=== PATIENT | male | born 1935 | race Caucasian/White ===

== ENCOUNTER 2018-08-14 09:41 | Inpatient (IN) | payer MEDICARE ==
[2018-08-14] MEDS: APIXABAN 2.5 MG TAB (ELIQUIS) PO ×2 (09:00→20:56)
[~2018-08-14 09:41] MED LIST: BUDESONIDE 0.5 MG/2 ML INHALATION SUSPENSION INH
[2018-08-14] MEDS: IPRATROPIUM 0.5MG/ALBUTEROL 2.5MG INH SOL UD 3ML (DUONEB)(J7620) NEB ×5 (10:24→22:02)
[2018-08-14 10:27] LABS: ABG BASE EXCESS -0.2 (-2.0-2.0); ABG O2 SATURATION 92.4 % (95.0-99.0); ABG PARTIAL PRESSURE CO2 37.9 mmHg (35.0-45.0); ABG PARTIAL PRESSURE O2 62.4 mmHg (75.0-100.0); ABG STANDARD HCO3 24.2 MEQ/L (22.0-26.0); ABG TOTAL CO2 25.2 MEQ/L (23.0-31.0)
[2018-08-14 10:30] LABS: BASO % 0.2 % (0.0-1.0); EOS % 0.3 % (0.0-3.0); HEMATOCRIT 39.1 % (42.0-52.0); HEMOGLOBIN 13.3 g/dl (13.5-17.5); IMMATURE GRANULOCYTE % 0.5 % (0-3.0); LYMPH # 0.8 10^3/uL (1.5-4.5); LYMPH % 6.5 % (24.0-44.0); MEAN CORPUSCULAR HEMOGLOBIN 32.6 pg (27.0-33.0); MEAN CORPUSCULAR VOLUME 95.8 fl (80.0-96.0); MONO # 0.3 10^3/uL (0.0-0.8); MONO % 2.7 % (0.0-5.0); NEUTROPHILS # 10.7 10^3/uL (1.8-7.7); NEUTROPHILS % 89.8 % (36.0-66.0); PLATELET COUNT, AUTOMATED 166 10^3/uL (150-450); RED BLOOD COUNT 4.08 10^6/uL (4.30-6.10); RED CELL DISTRIBUTION WIDTH 13.3 % (11.5-14.5); WHITE BLOOD COUNT 11.9 10^3/uL (4.0-10.0)
[2018-08-14 10:41] LABS: INR 0.94; PROTHROMBIN TIME 12.7 SECONDS (12.1-14.4)
[2018-08-14] MEDS: NS 1,000 ML IV (10:51)
[2018-08-14] MEDS: methylPREDNISolone INJ 125 MG/2 ML VIAL (J2930) IV ×2 (10:52→17:43)
[2018-08-14] MEDS: cefTRIAXone SOD 2 GM in D5W MINI-BAG PLUS 50 ML IV (10:59)
[2018-08-14] MEDS: ACETAMINOPHEN 325 MG TAB PO (11:12)
[2018-08-14 11:28] LABS: ALBUMIN 3.3 GM/DL (3.2-5.2); ALKALINE PHOSPHATASE 102 U/L (45-117); ALT/SGPT 20 U/L (12-78); ANION GAP 11 MEQ/L (8-16); AST/SGOT 13 U/L (7-37); BILIRUBIN,DIRECT 0.2 MG/DL (0.0-0.2); BILIRUBIN,TOTAL 0.4 MG/DL (0.2-1.0); BLOOD UREA NITROGEN 33 MG/DL (7-18); CALCIUM LEVEL 8.5 MG/DL (8.8-10.2); CARBON DIOXIDE LEVEL 24 MEQ/L (21-32); CHLORIDE LEVEL 110 MEQ/L (98-107); CPK CREATINE PHOSPHOKINASE 98 U/L (39-308); CREATININE FOR GFR 1.68 MG/DL (0.70-1.30); GLOMERULAR FILTRATION RATE 41.7 (>35); GLUCOSE, FASTING 233 MG/DL (70-100); INFLUENZA A AMPLIFICATION NEGATIVE (NEGATIVE); INFLUENZA B AMPLIFICATION NEGATIVE (NEGATIVE); MB/CK RELATIVE INDEX 2.96 (< OR =4); NT-PRO BNP 188 PG/ML (<450); SODIUM LEVEL 145 MEQ/L (136-145); TOTAL PROTEIN 6.3 GM/DL (6.4-8.2); TROPONIN I 0.02 NG/ML (< 0.10)
[2018-08-14] MEDS ORDERED: GLUCAGON FOR INJ 1 MG VIAL (J1610) SC (13:00)
[2018-08-14] MEDS ORDERED: ACETAMINOPHEN TAB 650MG DOSE (2X325MG) PO (13:00)
[2018-08-14] MEDS ORDERED: GLUCOSE 4 GM CHEW TABLET PO (13:00)
[2018-08-14] MEDS ORDERED: DEXTROSE 50% 50 ML SYRINGE IV (13:00)
[2018-08-14] MEDS ORDERED: ONDANSETRON 4MG/2ML VIAL (J2405) IV (13:15)
[2018-08-14 15:01] LABS: C REACTIVE PROTEIN QUANTITATIV 2.87 MG/DL (0.00-0.30); CPK CREATINE PHOSPHOKINASE 125 U/L (39-308); FREE T4 0.52 NG/DL (0.76-1.46); TROPONIN I 0.04 NG/ML (< 0.10)
[2018-08-14] MEDS: AZITHROMYCIN INJ 500 MG, VIAL MATE ADAPTER 1 EACH in D5W 250 ML IV (15:40)
[2018-08-14] MEDS: FUROSEMIDE 40 MG TAB PO (15:41)
[2018-08-14] MEDS: OMEPRAZOLE 20 MG CAP PO (15:42)
[2018-08-14] MEDS: ATENOLOL 25 MG TAB PO (15:44)
[2018-08-14 16:57] LABS: BEDSIDE GLUCOSE 483 MG/DL (83-110)
[2018-08-14] MEDS: LEVOTHYROXINE 25MCG TABLET (0.025MG) PO (17:12)
[2018-08-14] MEDS: HumaLOG INSULIN (NovoLOG) PER UNIT SC ×2 (17:44→20:55)
[2018-08-14 20:03] LABS: CPK CREATINE PHOSPHOKINASE 213 U/L (39-308); MB/CK RELATIVE INDEX 2.49 (< OR =4); TROPONIN I 0.02 NG/ML (< 0.10)
[2018-08-14 20:34] LABS: BEDSIDE GLUCOSE 410 MG/DL (83-110)
[2018-08-14] MEDS: LEVEMIR (INSULIN DETEMIR) 1 UNITS/0.01ML SC (20:54)
[2018-08-14] MEDS: TAMSULOSIN 0.4 MG CAP PO (20:55)
[2018-08-14] MEDS: SIMVASTATIN 20 MG TAB PO (20:55)
[2018-08-14] MEDS: MONTELUKAST 10 MG TAB PO (20:56)
[2018-08-14] MEDS: SENOKOT S TAB PO (20:56)
[2018-08-14] MEDS: MULTIVITAMINS/MINERALS THERAP 1 TAB PO (20:56)
[2018-08-14] MEDS: ASCORBIC ACID 500 MG TAB PO (20:56)
[2018-08-14] MEDS: SYMBICORT 160/4.5MCG INHALER 6GM INH (21:00)
[2018-08-15] MEDS: IPRATROPIUM 0.5MG/ALBUTEROL 2.5MG INH SOL UD 3ML (DUONEB)(J7620) NEB ×3 (01:30→14:13)
[2018-08-15] MEDS: NS 1,000 ML IV ×2 (02:53→13:10)
[2018-08-15] MEDS: methylPREDNISolone INJ 125 MG/2 ML VIAL (J2930) IV ×3 (02:54→18:15)
[2018-08-15 05:08] LABS: HEMATOCRIT 38.3 % (42.0-52.0); HEMOGLOBIN 12.6 g/dl (13.5-17.5); MEAN CORPUSCULAR HEMOGLOBIN 32.1 pg (27.0-33.0); MEAN CORPUSCULAR HGB CONC 32.9 g/dl (32.0-36.5); MEAN CORPUSCULAR VOLUME 97.5 fl (80.0-96.0); PLATELET COUNT, AUTOMATED 158 10^3/uL (150-450); RED BLOOD COUNT 3.93 10^6/uL (4.30-6.10); RED CELL DISTRIBUTION WIDTH 13.5 % (11.5-14.5); WHITE BLOOD COUNT 18.4 10^3/uL (4.0-10.0)
[2018-08-15] MEDS: LEVOTHYROXINE 25MCG TABLET (0.025MG) PO (05:39)
[2018-08-15 05:40] LABS: ANION GAP 9 MEQ/L (8-16); BLOOD UREA NITROGEN 35 MG/DL (7-18); CALCIUM LEVEL 8.3 MG/DL (8.8-10.2); CARBON DIOXIDE LEVEL 25 MEQ/L (21-32); CHLORIDE LEVEL 108 MEQ/L (98-107); CREATININE FOR GFR 1.58 MG/DL (0.70-1.30); GLOMERULAR FILTRATION RATE 44.8 (>35); GLUCOSE, FASTING 284 MG/DL (70-100); MAGNESIUM LEVEL 2.1 MG/DL (1.8-2.4); POTASSIUM SERUM 4.7 MEQ/L (3.5-5.1); SODIUM LEVEL 142 MEQ/L (136-145)
[2018-08-15] MEDS: SYMBICORT 160/4.5MCG INHALER 6GM INH ×2 (07:27→21:44)
[2018-08-15] MEDS: HumaLOG INSULIN (NovoLOG) PER UNIT SC ×4 (07:57→20:40)
[2018-08-15] MEDS: APIXABAN 2.5 MG TAB (ELIQUIS) PO ×2 (07:59→20:40)
[2018-08-15] MEDS: FUROSEMIDE 40 MG TAB PO (07:59)
[2018-08-15] MEDS: ATENOLOL 25 MG TAB PO (07:59)
[2018-08-15] MEDS: OMEPRAZOLE 20 MG CAP PO (07:59)
[2018-08-15] MEDS: SENOKOT S TAB PO ×2 (07:59→20:39)
[2018-08-15] MEDS: cefTRIAXone SOD 1 GM in D5W MINI-BAG PLUS 50 ML IV (10:42)
[2018-08-15 11:30] LABS: BEDSIDE GLUCOSE 259 MG/DL (83-110)
[2018-08-15] MEDS: cloNIDine 0.2 MG TAB PO (13:09)
[2018-08-15] MEDS: AZITHROMYCIN INJ 500 MG, VIAL MATE ADAPTER 1 EACH in D5W 250 ML IV (13:10)
[2018-08-15] MEDS ORDERED: BISACODYL 5 MG TAB PO (16:15)
[2018-08-15 16:49] LABS: BEDSIDE GLUCOSE 383 MG/DL (83-110)
[2018-08-15] MEDS: amLODIPine 10 MG TAB PO (17:12)
[2018-08-15 17:20] LABS: LACTIC ACID SEPSIS PROTOCOL 2.1 MMOL/L (0.4-2.0)
[2018-08-15] MEDS: ALBUTEROL SULFATE 2.5 MG/0.5 ML INH NEB SOLN NEB (20:00)
[2018-08-15 20:05] LABS: BEDSIDE GLUCOSE 318 MG/DL (83-110)
[2018-08-15] MEDS: SIMVASTATIN 20 MG TAB PO (20:39)
[2018-08-15] MEDS: MONTELUKAST 10 MG TAB PO (20:40)
[2018-08-15] MEDS: ASCORBIC ACID 500 MG TAB PO (20:40)
[2018-08-15] MEDS: TAMSULOSIN 0.4 MG CAP PO (20:40)
[2018-08-15] MEDS: MULTIVITAMINS/MINERALS THERAP 1 TAB PO (20:40)
[2018-08-15] MEDS: LEVEMIR (INSULIN DETEMIR) 1 UNITS/0.01ML SC (20:41)
[2018-08-16] MEDS: ALBUTEROL SULFATE 2.5 MG/0.5 ML INH NEB SOLN NEB ×4 (00:50→18:20)
[2018-08-16] MEDS: methylPREDNISolone INJ 125 MG/2 ML VIAL (J2930) IV (02:29)
[2018-08-16] MEDS: LEVOTHYROXINE 25MCG TABLET (0.025MG) PO (05:44)
[2018-08-16 05:52] LABS: HEMATOCRIT 38.4 % (42.0-52.0); HEMOGLOBIN 12.9 g/dl (13.5-17.5); MEAN CORPUSCULAR HEMOGLOBIN 32.5 pg (27.0-33.0); MEAN CORPUSCULAR HGB CONC 33.6 g/dl (32.0-36.5); MEAN CORPUSCULAR VOLUME 96.7 fl (80.0-96.0); PLATELET COUNT, AUTOMATED 164 10^3/uL (150-450); RED BLOOD COUNT 3.97 10^6/uL (4.30-6.10); RED CELL DISTRIBUTION WIDTH 13.3 % (11.5-14.5); WHITE BLOOD COUNT 18.9 10^3/uL (4.0-10.0)
[2018-08-16 06:00] LABS: ANION GAP 10 MEQ/L (8-16); BLOOD UREA NITROGEN 38 MG/DL (7-18); CALCIUM LEVEL 8.3 MG/DL (8.8-10.2); CARBON DIOXIDE LEVEL 24 MEQ/L (21-32); CHLORIDE LEVEL 105 MEQ/L (98-107); CREATININE FOR GFR 1.52 MG/DL (0.70-1.30); GLOMERULAR FILTRATION RATE 46.9 (>35); GLUCOSE, FASTING 319 MG/DL (70-100); MAGNESIUM LEVEL 2.2 MG/DL (1.8-2.4); POTASSIUM SERUM 4.7 MEQ/L (3.5-5.1); SODIUM LEVEL 139 MEQ/L (136-145)
[2018-08-16] MEDS: IPRATROPIUM 0.5MG/ALBUTEROL 2.5MG INH SOL UD 3ML (DUONEB)(J7620) NEB ×3 (06:14→20:19)
[2018-08-16] MEDS: SYMBICORT 160/4.5MCG INHALER 6GM INH ×2 (08:25→20:21)
[2018-08-16] MEDS: HumaLOG INSULIN (NovoLOG) PER UNIT SC ×4 (08:38→21:15)
[2018-08-16] MEDS: APIXABAN 2.5 MG TAB (ELIQUIS) PO ×2 (08:39→21:14)
[2018-08-16] MEDS: FUROSEMIDE 40 MG TAB PO (08:39)
[2018-08-16] MEDS: SENOKOT S TAB PO ×2 (08:39→21:14)
[2018-08-16] MEDS: LEVEMIR (INSULIN DETEMIR) 1 UNITS/0.01ML SC ×2 (08:39→21:15)
[2018-08-16] MEDS: amLODIPine 10 MG TAB PO (08:39)
[2018-08-16] MEDS: ATENOLOL 25 MG TAB PO (08:40)
[2018-08-16] MEDS: OMEPRAZOLE 20 MG CAP PO (08:40)
[2018-08-16] MEDS: cefTRIAXone SOD 1 GM in D5W MINI-BAG PLUS 50 ML IV (11:08)
[2018-08-16] MEDS: methylPREDNISolone INJ 40 MG/1 ML VIAL (J2920) IV ×2 (11:08→22:22)
[2018-08-16 11:24] LABS: BEDSIDE GLUCOSE 414 MG/DL (83-110)
[2018-08-16] MEDS: AZITHROMYCIN INJ 500 MG, VIAL MATE ADAPTER 1 EACH in D5W 250 ML IV (14:25)
[2018-08-16 17:00] LABS: BEDSIDE GLUCOSE 346 MG/DL (83-110)
[2018-08-16 19:59] LABS: BEDSIDE GLUCOSE 337 MG/DL (83-110)
[2018-08-16] MEDS: MONTELUKAST 10 MG TAB PO (21:14)
[2018-08-16] MEDS: ASCORBIC ACID 500 MG TAB PO (21:14)
[2018-08-16] MEDS: TAMSULOSIN 0.4 MG CAP PO (21:14)
[2018-08-16] MEDS: MULTIVITAMINS/MINERALS THERAP 1 TAB PO (21:14)
[2018-08-16] MEDS: SIMVASTATIN 20 MG TAB PO (21:15)
[2018-08-17] MEDS: ALBUTEROL SULFATE 2.5 MG/0.5 ML INH NEB SOLN NEB ×4 (01:50→20:00)
[2018-08-17] MEDS: **hydrALAZINE** 10 MG TAB PO (06:03)
[2018-08-17] MEDS: LEVOTHYROXINE 25MCG TABLET (0.025MG) PO (06:03)
[2018-08-17 06:55] LABS: HEMOGLOBIN 12.7 g/dl (13.5-17.5); MEAN CORPUSCULAR HEMOGLOBIN 32.5 pg (27.0-33.0); MEAN CORPUSCULAR HGB CONC 34.3 g/dl (32.0-36.5); MEAN CORPUSCULAR VOLUME 94.6 fl (80.0-96.0); PLATELET COUNT, AUTOMATED 170 10^3/uL (150-450); RED BLOOD COUNT 3.91 10^6/uL (4.30-6.10); RED CELL DISTRIBUTION WIDTH 13.5 % (11.5-14.5); WHITE BLOOD COUNT 16.5 10^3/uL (4.0-10.0)
[2018-08-17 07:21] LABS: ANION GAP 10 MEQ/L (8-16); BLOOD UREA NITROGEN 39 MG/DL (7-18); C REACTIVE PROTEIN QUANTITATIV 4.37 MG/DL (0.00-0.30); CALCIUM LEVEL 8.7 MG/DL (8.8-10.2); CARBON DIOXIDE LEVEL 24 MEQ/L (21-32); CHLORIDE LEVEL 106 MEQ/L (98-107); CREATININE FOR GFR 1.49 MG/DL (0.70-1.30); GLOMERULAR FILTRATION RATE 47.9 (>35); GLUCOSE, FASTING 239 MG/DL (70-100); MAGNESIUM LEVEL 2.3 MG/DL (1.8-2.4); POTASSIUM SERUM 3.9 MEQ/L (3.5-5.1); SODIUM LEVEL 140 MEQ/L (136-145)
[2018-08-17] MEDS: APIXABAN 2.5 MG TAB (ELIQUIS) PO ×2 (08:30→21:17)
[2018-08-17] MEDS: OMEPRAZOLE 20 MG CAP PO (08:30)
[2018-08-17] MEDS: FUROSEMIDE 40 MG TAB PO (08:31)
[2018-08-17] MEDS: SENOKOT S TAB PO ×2 (08:31→21:16)
[2018-08-17] MEDS: ATENOLOL 25 MG TAB PO (08:31)
[2018-08-17] MEDS: HumaLOG INSULIN (NovoLOG) PER UNIT SC ×4 (08:32→21:17)
[2018-08-17] MEDS: LEVEMIR (INSULIN DETEMIR) 1 UNITS/0.01ML SC ×2 (08:32→21:18)
[2018-08-17] MEDS: amLODIPine 10 MG TAB PO (08:33)
[2018-08-17] MEDS: methylPREDNISolone INJ 40 MG/1 ML VIAL (J2920) IV ×2 (10:34→18:00)
[2018-08-17] MEDS: cefTRIAXone SOD 1 GM in D5W MINI-BAG PLUS 50 ML IV (10:34)
[2018-08-17] MEDS: FUROSEMIDE 20 MG/2 ML VIAL (J1940) IV (10:34)
[2018-08-17] MEDS: FORMOTEROL FUMARATE 20 MCG/2 ML INHALATION SOLUTION (PERFOROMIST) INH ×2 (11:16→20:42)
[2018-08-17] MEDS: BUDESONIDE 0.5 MG/2 ML INHALATION SUSPENSION INH ×2 (11:18→20:42)
[2018-08-17] MEDS: TIOTROPIUM INHALER/CAPSULE (SPIRIVA) INH (11:18)
[2018-08-17 11:29] LABS: BEDSIDE GLUCOSE 252 MG/DL (83-110)
[2018-08-17] MEDS: AZITHROMYCIN INJ 500 MG, VIAL MATE ADAPTER 1 EACH in D5W 250 ML IV (15:15)
[2018-08-17 16:43] LABS: BEDSIDE GLUCOSE 354 MG/DL (83-110)
[2018-08-17 20:34] LABS: BEDSIDE GLUCOSE 273 MG/DL (83-110)
[2018-08-17] MEDS: SIMVASTATIN 20 MG TAB PO (21:16)
[2018-08-17] MEDS: MULTIVITAMINS/MINERALS THERAP 1 TAB PO (21:16)
[2018-08-17] MEDS: ASCORBIC ACID 500 MG TAB PO (21:17)
[2018-08-17] MEDS: TAMSULOSIN 0.4 MG CAP PO (21:17)
[2018-08-17] MEDS: MONTELUKAST 10 MG TAB PO (21:17)
[2018-08-18] MEDS: methylPREDNISolone INJ 40 MG/1 ML VIAL (J2920) IV ×2 (01:05→09:07)
[2018-08-18] MEDS: ALBUTEROL SULFATE 2.5 MG/0.5 ML INH NEB SOLN NEB (03:02)
[2018-08-18] MEDS: LEVOTHYROXINE 25MCG TABLET (0.025MG) PO (05:37)
[2018-08-18 06:46] LABS: HEMATOCRIT 38.3 % (42.0-52.0); MEAN CORPUSCULAR HEMOGLOBIN 31.9 pg (27.0-33.0); MEAN CORPUSCULAR HGB CONC 33.9 g/dl (32.0-36.5); MEAN CORPUSCULAR VOLUME 94.1 fl (80.0-96.0); PLATELET COUNT, AUTOMATED 176 10^3/uL (150-450); RED BLOOD COUNT 4.07 10^6/uL (4.30-6.10); RED CELL DISTRIBUTION WIDTH 13.4 % (11.5-14.5); WHITE BLOOD COUNT 12.3 10^3/uL (4.0-10.0)
[2018-08-18 07:05] LABS: ANION GAP 9 MEQ/L (8-16); BLOOD UREA NITROGEN 42 MG/DL (7-18); C REACTIVE PROTEIN QUANTITATIV 1.95 MG/DL (0.00-0.30); CALCIUM LEVEL 8.8 MG/DL (8.8-10.2); CARBON DIOXIDE LEVEL 27 MEQ/L (21-32); CHLORIDE LEVEL 106 MEQ/L (98-107); CREATININE FOR GFR 1.58 MG/DL (0.70-1.30); GLOMERULAR FILTRATION RATE 44.8 (>35); GLUCOSE, FASTING 232 MG/DL (70-100); MAGNESIUM LEVEL 2.4 MG/DL (1.8-2.4); POTASSIUM SERUM 4.3 MEQ/L (3.5-5.1); SODIUM LEVEL 142 MEQ/L (136-145)
[2018-08-18] MEDS: BUDESONIDE 0.5 MG/2 ML INHALATION SUSPENSION INH ×2 (08:01→21:05)
[2018-08-18] MEDS: FORMOTEROL FUMARATE 20 MCG/2 ML INHALATION SOLUTION (PERFOROMIST) INH ×2 (08:01→21:06)
[2018-08-18] MEDS: TIOTROPIUM INHALER/CAPSULE (SPIRIVA) INH (08:02)
[2018-08-18] MEDS ORDERED: FUROSEMIDE 80 MG TAB PO (09:00)
[2018-08-18] MEDS ORDERED: FUROSEMIDE 40 MG/4 ML VIAL (J1940) IV (09:00)
[2018-08-18] MEDS: LEVEMIR (INSULIN DETEMIR) 1 UNITS/0.01ML SC ×2 (09:05→21:27)
[2018-08-18] MEDS: HumaLOG INSULIN (NovoLOG) PER UNIT SC ×4 (09:06→21:26)
[2018-08-18] MEDS: FUROSEMIDE 20 MG TAB PO (09:06)
[2018-08-18] MEDS: APIXABAN 2.5 MG TAB (ELIQUIS) PO ×2 (09:06→21:27)
[2018-08-18] MEDS: OMEPRAZOLE 20 MG CAP PO (09:07)
[2018-08-18] MEDS: SENOKOT S TAB PO ×2 (09:07→21:27)
[2018-08-18] MEDS: amLODIPine 10 MG TAB PO (09:08)
[2018-08-18] MEDS: ATENOLOL 25 MG TAB PO (09:08)
[2018-08-18] MEDS: IPRATROPIUM 0.5MG/ALBUTEROL 2.5MG INH SOL UD 3ML (DUONEB)(J7620) NEB ×4 (11:36→23:40)
[2018-08-18] MEDS: guaiFENesin ER 600 MG TAB PO ×2 (11:48→21:27)
[2018-08-18] MEDS: AZITHROMYCIN 250 MG TAB PO (11:48)
[2018-08-18] MEDS: cefTRIAXone SOD 1 GM in D5W MINI-BAG PLUS 50 ML IV (11:49)
[2018-08-18 12:04] LABS: BEDSIDE GLUCOSE 192 MG/DL (83-110)
[2018-08-18 16:39] LABS: BEDSIDE GLUCOSE 212 MG/DL (83-110)
[2018-08-18] MEDS: methylPREDNISolone INJ 125 MG/2 ML VIAL (J2930) IV ×2 (16:45→21:27)
[2018-08-18 20:43] LABS: BEDSIDE GLUCOSE 299 MG/DL (83-110)
[2018-08-18] MEDS: SIMVASTATIN 20 MG TAB PO (21:27)
[2018-08-18] MEDS: TAMSULOSIN 0.4 MG CAP PO (21:27)
[2018-08-18] MEDS: ASCORBIC ACID 500 MG TAB PO (21:28)
[2018-08-18] MEDS: MONTELUKAST 10 MG TAB PO (21:28)
[2018-08-18] MEDS: MULTIVITAMINS/MINERALS THERAP 1 TAB PO (21:28)
[2018-08-19] MEDS: IPRATROPIUM 0.5MG/ALBUTEROL 2.5MG INH SOL UD 3ML (DUONEB)(J7620) NEB ×5 (03:00→20:00)
[2018-08-19] MEDS: methylPREDNISolone INJ 125 MG/2 ML VIAL (J2930) IV ×4 (03:12→21:08)
[2018-08-19] MEDS: LEVOTHYROXINE 25MCG TABLET (0.025MG) PO (05:34)
[2018-08-19] MEDS: amLODIPine 10 MG TAB PO (05:34)
[2018-08-19 06:45] LABS: HEMATOCRIT 40.1 % (42.0-52.0); HEMOGLOBIN 13.7 g/dl (13.5-17.5); MEAN CORPUSCULAR HEMOGLOBIN 31.9 pg (27.0-33.0); MEAN CORPUSCULAR HGB CONC 34.2 g/dl (32.0-36.5); MEAN CORPUSCULAR VOLUME 93.5 fl (80.0-96.0); PLATELET COUNT, AUTOMATED 174 10^3/uL (150-450); RED BLOOD COUNT 4.29 10^6/uL (4.30-6.10); WHITE BLOOD COUNT 12.4 10^3/uL (4.0-10.0)
[2018-08-19 07:09] LABS: ANION GAP 8 MEQ/L (8-16); BLOOD UREA NITROGEN 47 MG/DL (7-18); C REACTIVE PROTEIN QUANTITATIV 1.15 MG/DL (0.00-0.30); CALCIUM LEVEL 8.9 MG/DL (8.8-10.2); CARBON DIOXIDE LEVEL 27 MEQ/L (21-32); CHLORIDE LEVEL 105 MEQ/L (98-107); CREATININE FOR GFR 1.64 MG/DL (0.70-1.30); GLOMERULAR FILTRATION RATE 42.9 (>35); GLUCOSE, FASTING 256 MG/DL (70-100); MAGNESIUM LEVEL 2.5 MG/DL (1.8-2.4); POTASSIUM SERUM 4.3 MEQ/L (3.5-5.1); SODIUM LEVEL 140 MEQ/L (136-145)
[2018-08-19] MEDS: BUDESONIDE 0.5 MG/2 ML INHALATION SUSPENSION INH ×2 (07:47→23:47)
[2018-08-19] MEDS: FORMOTEROL FUMARATE 20 MCG/2 ML INHALATION SOLUTION (PERFOROMIST) INH ×2 (07:47→23:47)
[2018-08-19] MEDS: TIOTROPIUM INHALER/CAPSULE (SPIRIVA) INH (07:48)
[2018-08-19] MEDS: LEVEMIR (INSULIN DETEMIR) 1 UNITS/0.01ML SC ×2 (07:58→21:07)
[2018-08-19] MEDS: HumaLOG INSULIN (NovoLOG) PER UNIT SC ×4 (07:58→21:08)
[2018-08-19] MEDS: FUROSEMIDE 20 MG TAB PO (07:59)
[2018-08-19] MEDS: AZITHROMYCIN 250 MG TAB PO (07:59)
[2018-08-19] MEDS: SENOKOT S TAB PO ×2 (07:59→21:07)
[2018-08-19] MEDS: OMEPRAZOLE 20 MG CAP PO (08:01)
[2018-08-19] MEDS: guaiFENesin ER 600 MG TAB PO ×2 (08:01→21:07)
[2018-08-19] MEDS: APIXABAN 2.5 MG TAB (ELIQUIS) PO ×2 (08:01→21:06)
[2018-08-19] MEDS: ATENOLOL 25 MG TAB PO (08:12)
[2018-08-19] MEDS: cefTRIAXone SOD 1 GM in D5W MINI-BAG PLUS 50 ML IV (10:42)
[2018-08-19 11:39] LABS: BEDSIDE GLUCOSE 193 MG/DL (83-110)
[2018-08-19 16:43] LABS: BEDSIDE GLUCOSE 177 MG/DL (83-110)
[2018-08-19 20:17] LABS: BEDSIDE GLUCOSE 322 MG/DL (83-110)
[2018-08-19] MEDS: ASCORBIC ACID 500 MG TAB PO (21:06)
[2018-08-19] MEDS: MONTELUKAST 10 MG TAB PO (21:06)
[2018-08-19] MEDS: SIMVASTATIN 20 MG TAB PO (21:06)
[2018-08-19] MEDS: MULTIVITAMINS/MINERALS THERAP 1 TAB PO (21:07)
[2018-08-19] MEDS: TAMSULOSIN 0.4 MG CAP PO (21:07)
[2018-08-20] MEDS: methylPREDNISolone INJ 125 MG/2 ML VIAL (J2930) IV ×4 (03:06→21:36)
[2018-08-20] MEDS: IPRATROPIUM 0.5MG/ALBUTEROL 2.5MG INH SOL UD 3ML (DUONEB)(J7620) NEB ×6 (04:00→21:05)
[2018-08-20] MEDS: LEVOTHYROXINE 25MCG TABLET (0.025MG) PO (05:33)
[2018-08-20 05:52] LABS: HEMATOCRIT 41.5 % (42.0-52.0); HEMOGLOBIN 14.1 g/dl (13.5-17.5); MEAN CORPUSCULAR HEMOGLOBIN 31.9 pg (27.0-33.0); MEAN CORPUSCULAR VOLUME 93.9 fl (80.0-96.0); PLATELET COUNT, AUTOMATED 183 10^3/uL (150-450); RED BLOOD COUNT 4.42 10^6/uL (4.30-6.10); WHITE BLOOD COUNT 16.7 10^3/uL (4.0-10.0)
[2018-08-20 06:11] LABS: ANION GAP 10 MEQ/L (8-16); BLOOD UREA NITROGEN 52 MG/DL (7-18); C REACTIVE PROTEIN QUANTITATIV 0.81 MG/DL (0.00-0.30); CALCIUM LEVEL 8.7 MG/DL (8.8-10.2); CARBON DIOXIDE LEVEL 27 MEQ/L (21-32); CHLORIDE LEVEL 105 MEQ/L (98-107); CREATININE FOR GFR 1.75 MG/DL (0.70-1.30); GLOMERULAR FILTRATION RATE 39.8 (>35); GLUCOSE, FASTING 206 MG/DL (70-100); MAGNESIUM LEVEL 2.2 MG/DL (1.8-2.4); POTASSIUM SERUM 4.2 MEQ/L (3.5-5.1); SODIUM LEVEL 142 MEQ/L (136-145)
[2018-08-20] MEDS: BUDESONIDE 0.5 MG/2 ML INHALATION SUSPENSION INH ×2 (07:25→21:05)
[2018-08-20] MEDS: FORMOTEROL FUMARATE 20 MCG/2 ML INHALATION SOLUTION (PERFOROMIST) INH ×2 (07:25→21:05)
[2018-08-20] MEDS: TIOTROPIUM INHALER/CAPSULE (SPIRIVA) INH (07:25)
[2018-08-20] MEDS: ATENOLOL 25 MG TAB PO (07:46)
[2018-08-20] MEDS: SENOKOT S TAB PO ×2 (07:46→21:38)
[2018-08-20] MEDS: OMEPRAZOLE 20 MG CAP PO (07:46)
[2018-08-20] MEDS: amLODIPine 10 MG TAB PO (07:47)
[2018-08-20] MEDS: HumaLOG INSULIN (NovoLOG) PER UNIT SC ×4 (07:47→21:37)
[2018-08-20] MEDS: APIXABAN 2.5 MG TAB (ELIQUIS) PO ×2 (07:47→21:38)
[2018-08-20] MEDS: AZITHROMYCIN 250 MG TAB PO (07:47)
[2018-08-20] MEDS: guaiFENesin ER 600 MG TAB PO ×2 (07:47→21:37)
[2018-08-20] MEDS: LEVEMIR (INSULIN DETEMIR) 1 UNITS/0.01ML SC ×3 (07:48→21:37)
[2018-08-20] MEDS: cefTRIAXone SOD 1 GM in D5W MINI-BAG PLUS 50 ML IV (10:08)
[2018-08-20] MEDS: FLUTICASONE PROP 0.05% NASAL SPRAY 16 GM (FLONASE) NARES ×2 (11:15→21:39)
[2018-08-20] MEDS: SODIUM CHLORIDE NASAL 0.65% SPRAY BTL (OCEAN) ×3 (11:15→21:39)
[2018-08-20 11:38] LABS: BEDSIDE GLUCOSE 95 MG/DL (83-110)
[2018-08-20 16:43] LABS: BEDSIDE GLUCOSE 195 MG/DL (83-110)
[2018-08-20 19:47] LABS: BEDSIDE GLUCOSE 257 MG/DL (83-110)
[2018-08-20] MEDS ORDERED: LEVEMIR (INSULIN DETEMIR) 1 UNITS/0.01ML SC (21:00)
[2018-08-20] MEDS: MULTIVITAMINS/MINERALS THERAP 1 TAB PO (21:38)
[2018-08-20] MEDS: TAMSULOSIN 0.4 MG CAP PO (21:38)
[2018-08-20] MEDS: MONTELUKAST 10 MG TAB PO (21:38)
[2018-08-20] MEDS: ASCORBIC ACID 500 MG TAB PO (21:38)
[2018-08-20] MEDS: SIMVASTATIN 20 MG TAB PO (21:38)
[2018-08-21 00:08] LABS: BODY FLUID CULTURE Not Indicated (.); LEGIONELLA ANTIGEN URINE Negative (Negative); ORGANISM ID Not indicated. (.); SPECIMEN SOURCE Urine (.); URINE STREP PNEUMONIAE ANTIGEN Negative (Negative)
[2018-08-21] MEDS: IPRATROPIUM 0.5MG/ALBUTEROL 2.5MG INH SOL UD 3ML (DUONEB)(J7620) NEB ×7 (00:53→23:53)
[2018-08-21] MEDS: methylPREDNISolone INJ 125 MG/2 ML VIAL (J2930) IV ×4 (04:20→21:17)
[2018-08-21] MEDS: LEVOTHYROXINE 25MCG TABLET (0.025MG) PO (05:33)
[2018-08-21 06:30] LABS: HEMATOCRIT 40.9 % (42.0-52.0); HEMOGLOBIN 13.9 g/dl (13.5-17.5); MEAN CORPUSCULAR HEMOGLOBIN 31.8 pg (27.0-33.0); MEAN CORPUSCULAR VOLUME 93.6 fl (80.0-96.0); PLATELET COUNT, AUTOMATED 191 10^3/uL (150-450); RED BLOOD COUNT 4.37 10^6/uL (4.30-6.10); RED CELL DISTRIBUTION WIDTH 12.9 % (11.5-14.5); WHITE BLOOD COUNT 16.3 10^3/uL (4.0-10.0)
[2018-08-21 06:31] LABS: SODIUM,RANDOM URINE 23 MEQ/L
[2018-08-21 06:36] LABS: APPEARANCE, URINE CLEAR (CLEAR); BACTERIA, URINE AUTO NEGATIVE (NEGATIVE); BILIRUBIN, URINE AUTO NEGATIVE (NEGATIVE); BLOOD, URINE BLOOD NEGATIVE (NEGATIVE); COLOR, URINE YELLOW (YELLOW); GLUCOSE, URINE (UA) AUTO 3+ mg/dL (NEGATIVE); KETONE, URINE AUTO NEGATIVE (NEGATIVE); LEUKOCYTE ESTERASE, URINE AUTO NEGATIVE (NEGATIVE); MUCUS, URINE SMALL (NEGATIVE); NITRITE, URINE AUTO NEGATIVE (NEGATIVE); PROTEIN, URINE AUTO 2+ mg/dL (NEGATIVE); RBC, URINE AUTO 2 /HPF (0-3); SPECIFIC GRAVITY URINE AUTO 1.018 (1.002-1.035); SQUAMOUS EPITHELIAL CELL UR AU 0 /HPF (0-6); UROBILINOGEN, URINE AUTO 0.2 mg/dL (0.0-2.0); WBC, URINE AUTO 1 /HPF (0-3)
[2018-08-21 06:44] LABS: ANION GAP 9 MEQ/L (8-16); BLOOD UREA NITROGEN 51 MG/DL (7-18); CALCIUM LEVEL 8.7 MG/DL (8.8-10.2); CARBON DIOXIDE LEVEL 26 MEQ/L (21-32); CHLORIDE LEVEL 106 MEQ/L (98-107); CREATININE FOR GFR 1.73 MG/DL (0.70-1.30); GLOMERULAR FILTRATION RATE 40.4 (>35); GLUCOSE, FASTING 228 MG/DL (70-100); MAGNESIUM LEVEL 2.5 MG/DL (1.8-2.4); POTASSIUM SERUM 4.2 MEQ/L (3.5-5.1); SODIUM LEVEL 141 MEQ/L (136-145)
[2018-08-21] MEDS: FORMOTEROL FUMARATE 20 MCG/2 ML INHALATION SOLUTION (PERFOROMIST) INH ×2 (08:24→20:42)
[2018-08-21] MEDS: TIOTROPIUM INHALER/CAPSULE (SPIRIVA) INH (08:24)
[2018-08-21] MEDS: BUDESONIDE 0.5 MG/2 ML INHALATION SUSPENSION INH ×2 (08:24→20:41)
[2018-08-21] MEDS: SENOKOT S TAB PO ×2 (08:55→21:15)
[2018-08-21] MEDS: HumaLOG INSULIN (NovoLOG) PER UNIT SC ×4 (08:55→21:16)
[2018-08-21] MEDS: guaiFENesin ER 600 MG TAB PO ×2 (08:55→21:15)
[2018-08-21] MEDS: LEVEMIR (INSULIN DETEMIR) 1 UNITS/0.01ML SC ×2 (08:55→21:16)
[2018-08-21] MEDS: ATENOLOL 25 MG TAB PO (08:56)
[2018-08-21] MEDS: amLODIPine 10 MG TAB PO (08:56)
[2018-08-21] MEDS: APIXABAN 2.5 MG TAB (ELIQUIS) PO ×2 (08:56→21:15)
[2018-08-21] MEDS: OMEPRAZOLE 20 MG CAP PO (08:56)
[2018-08-21] MEDS: SODIUM CHLORIDE NASAL 0.65% SPRAY BTL (OCEAN) ×3 (08:56→21:17)
[2018-08-21] MEDS: FLUTICASONE PROP 0.05% NASAL SPRAY 16 GM (FLONASE) NARES ×2 (08:56→21:17)
[2018-08-21 11:39] LABS: BEDSIDE GLUCOSE 240 MG/DL (83-110)
[2018-08-21] MEDS: CHLORTHALIDONE 12.5MG PER 1/2 TABLET PO (16:28)
[2018-08-21 17:00] LABS: BEDSIDE GLUCOSE 175 MG/DL (83-110)
[2018-08-21 20:50] LABS: BEDSIDE GLUCOSE 312 MG/DL (83-110)
[2018-08-21] MEDS: MULTIVITAMINS/MINERALS THERAP 1 TAB PO (21:15)
[2018-08-21] MEDS: SIMVASTATIN 20 MG TAB PO (21:15)
[2018-08-21] MEDS: ASCORBIC ACID 500 MG TAB PO (21:15)
[2018-08-21] MEDS: MONTELUKAST 10 MG TAB PO (21:15)
[2018-08-21] MEDS: TAMSULOSIN 0.4 MG CAP PO (21:19)
[2018-08-22] MEDS: methylPREDNISolone INJ 125 MG/2 ML VIAL (J2930) IV ×3 (03:08→17:26)
[2018-08-22] MEDS: IPRATROPIUM 0.5MG/ALBUTEROL 2.5MG INH SOL UD 3ML (DUONEB)(J7620) NEB ×4 (04:00→17:51)
[2018-08-22] MEDS: LEVOTHYROXINE 25MCG TABLET (0.025MG) PO (06:06)
[2018-08-22 07:14] LABS: HEMATOCRIT 40.2 % (42.0-52.0); HEMOGLOBIN 13.7 g/dl (13.5-17.5); MEAN CORPUSCULAR HEMOGLOBIN 31.9 pg (27.0-33.0); MEAN CORPUSCULAR HGB CONC 34.1 g/dl (32.0-36.5); MEAN CORPUSCULAR VOLUME 93.7 fl (80.0-96.0); PLATELET COUNT, AUTOMATED 183 10^3/uL (150-450); RED BLOOD COUNT 4.29 10^6/uL (4.30-6.10); RED CELL DISTRIBUTION WIDTH 12.9 % (11.5-14.5); WHITE BLOOD COUNT 14.8 10^3/uL (4.0-10.0)
[2018-08-22 07:47] LABS: ANION GAP 10 MEQ/L (8-16); BLOOD UREA NITROGEN 53 MG/DL (7-18); CALCIUM LEVEL 8.2 MG/DL (8.8-10.2); CARBON DIOXIDE LEVEL 24 MEQ/L (21-32); CHLORIDE LEVEL 106 MEQ/L (98-107); GLOMERULAR FILTRATION RATE 41.2 (>35); GLUCOSE, FASTING 284 MG/DL (70-100); POTASSIUM SERUM 4.1 MEQ/L (3.5-5.1); SODIUM LEVEL 140 MEQ/L (136-145)
[2018-08-22 07:50] LABS: MAGNESIUM LEVEL 2.5 MG/DL (1.8-2.4)
[2018-08-22] MEDS: FORMOTEROL FUMARATE 20 MCG/2 ML INHALATION SOLUTION (PERFOROMIST) INH (08:08)
[2018-08-22] MEDS: TIOTROPIUM INHALER/CAPSULE (SPIRIVA) INH (08:08)
[2018-08-22] MEDS: BUDESONIDE 0.5 MG/2 ML INHALATION SUSPENSION INH (08:08)
[2018-08-22] MEDS: SENOKOT S TAB PO (09:08)
[2018-08-22] MEDS: guaiFENesin ER 600 MG TAB PO (09:08)
[2018-08-22] MEDS: CHLORTHALIDONE 12.5MG PER 1/2 TABLET PO (09:08)
[2018-08-22] MEDS: SODIUM CHLORIDE NASAL 0.65% SPRAY BTL (OCEAN) ×2 (09:09→17:25)
[2018-08-22] MEDS: amLODIPine 10 MG TAB PO (09:09)
[2018-08-22] MEDS: APIXABAN 2.5 MG TAB (ELIQUIS) PO (09:09)
[2018-08-22] MEDS: FLUTICASONE PROP 0.05% NASAL SPRAY 16 GM (FLONASE) NARES (09:09)
[2018-08-22] MEDS: OMEPRAZOLE 20 MG CAP PO (09:09)
[2018-08-22] MEDS: LEVEMIR (INSULIN DETEMIR) 1 UNITS/0.01ML SC (09:10)
[2018-08-22] MEDS: HumaLOG INSULIN (NovoLOG) PER UNIT SC ×3 (09:10→17:26)
[2018-08-22 11:55] LABS: BEDSIDE GLUCOSE 288 MG/DL (83-110)
[2018-08-22 16:43] LABS: BEDSIDE GLUCOSE 260 MG/DL (83-110)
== END 2018-08-22 17:55 | disposition home or self-care (01) | DRG 193 ==
LOC: M MSPAV 08-16 14:51 → M ED 09:41 → M ED INP 13:01 → M PCU 16:23
PROC: 0CJS8ZZ Inspection of Larynx, Via Natural or Artificial Opening Endoscopic (ICD-10-PCS; principal; 2018-08-20)
DX: J18.1 Lobar pneumonia, unspecified organism (principal); J96.01 Acute respiratory failure with hypoxia; J44.0 Chronic obstructive pulmonary disease with (acute) lower respiratory infection; J44.1 Chronic obstructive pulmonary disease with (acute) exacerbation; I50.32 Chronic diastolic (congestive) heart failure; I13.0 Hypertensive heart and chronic kidney disease with heart failure and stage 1 through stage 4 chronic kidney disease, or unspecified chronic kidney disease; G47.33 Obstructive sleep apnea (adult) (pediatric); E78.5 Hyperlipidemia, unspecified; N18.9 Chronic kidney disease, unspecified; E11.22 Type 2 diabetes mellitus with diabetic chronic kidney disease; N40.0 Benign prostatic hyperplasia without lower urinary tract symptoms; Z86.718 Personal history of other venous thrombosis and embolism; Z86.711 Personal history of pulmonary embolism; Z79.01 Long term (current) use of anticoagulants; Z87.891 Personal history of nicotine dependence; Z79.51 Long term (current) use of inhaled steroids; Z79.4 Long term (current) use of insulin; Z79.52 Long term (current) use of systemic steroids; Z99.81 Dependence on supplemental oxygen; Z79.899 Other long term (current) drug therapy

== ENCOUNTER 2019-04-14 17:59 | Emergency (ER) | payer MEDICARE ==
[~2019-04-14] VITALS: Ht 177.8 cm; Wt 97.1 kg
[~2019-04-14 17:59] MED LIST changes: +ACET1TAB55 PO; +ALBU17IN INH; +AMLO10TA PO; +AMLO10TA2 PO; +ASPI81CH49 PO; +ASPI81TA85 PO; +ATEN50TA2 PO; +AUGM875T27 PO; +AUGM875T28 PO; +AZIT200S30 PO; +AZIT500T2 PO; -BUDESONIDE 0.5 MG/2 ML INHALATION SUSPENSION INH; +CHLO125TA PO; +CINN500T PO; +CIPR-249 PO; +COLA100C5 PO; +COUM1TAB17 PO; +COUM2.5T17 PO; +COUM7.5T PO; +ELIQ2.5T PO; +FERR1TAB8 PO; +FLOM0.4C39 PO; +FURO20TA2 PO; +FURO40TA2 PO; +FURO80TA2 PO; +GUAI1200 PO; +Guaifenesin PO; +HYDR-2773 PO; +INSUDET SC; +INSULANT SC; +IPRA0.00 INH; +IPRASOL4 INH; +JANU100T PO; +JANU25TA PO; +LASI40TA9 PO; +LEVA1TAB2 PO; +LEVE1INJ5 SC; +LEVO25TA5 PO; +LEVO500T PO; +LIPI20TA PO; +LISI2.5T7 PO; +LOSA100T50 PO; +LOSA25TA14 PO; +LOSA25TA8 PO; +METF500T PO; +MUCI600T37 PO; +MULTCAP PO; +NORV5TAB PO; +OMEP20CA3 PO; +PRED-351 PO; +PRED10PA PO; +PRED10TA2 PO; +PRED20TA PO; +PRED20TAB PO; +PRED5TA PO; +PROAAER10 INH; +PULM0.5S INH; +SIMV20TA2 PO; +SIMV40TA2 PO; +SING10TA32 PO; +SITA50TAB PO; +SYMB16INH INH; +TAMS0.4C PO; +TYLE325T5 PO; +VENTAER INH; +VITA500T PO; +VITMTA PO; +[UNRECOGNIZED DRUG - CODE] INH
[2019-04-14 18:34] LABS: BASO % 0.1 % (0.0-1.0); EOS # 0.1 10^3/uL (0.0-0.50); EOS % 1.2 % (0.0-3.0); HEMATOCRIT 33.3 % (42.0-52.0); HEMOGLOBIN 11.2 g/dl (13.5-17.5); LYMPH # 0.4 10^3/uL (1.5-4.5); MEAN CORPUSCULAR HEMOGLOBIN 32.7 pg (27.0-33.0); MEAN CORPUSCULAR HGB CONC 33.6 g/dl (32.0-36.5); MEAN CORPUSCULAR VOLUME 97.1 fl (80.0-96.0); MONO # 0.6 10^3/uL (0.0-0.8); MONO % 6.5 % (0.0-5.0); NEUTROPHILS # 7.8 10^3/uL (1.8-7.7); NEUTROPHILS % 87.4 % (36.0-66.0); PLATELET COUNT, AUTOMATED 192 10^3/uL (150-450); RED BLOOD COUNT 3.43 10^6/uL (4.30-6.10); WHITE BLOOD COUNT 8.9 10^3/uL (4.0-10.0)
--- NOTE | 2019-04-14 18:47 | REP ---
Clinical: Altered mental status . Comparison: 08/14/2018 . Findings: The mediastinum and cardiac silhouette are stable and within normal limits for portable technique. The lung quiroga demonstrate chronic changes. Mild superimposed basilar atelectasis cannot be excluded. Previously noted left-sided infiltrates have resolved. Impression: Diffuse chronic interstitial changes. Cannot exclude trace basilar atelectasis Electronically Signed by Dc Barakat MD 04/14/2019 06:39 P
[2019-04-14 18:54] LABS: ALBUMIN 2.3 GM/DL (3.2-5.2); ALT/SGPT 30 U/L (12-78); BILIRUBIN,DIRECT 0.1 MG/DL (0.0-0.2); BILIRUBIN,TOTAL 0.5 MG/DL (0.2-1.0); BLOOD UREA NITROGEN 29 MG/DL (7-18); CALCIUM LEVEL 7.5 MG/DL (8.8-10.2); CARBON DIOXIDE LEVEL 27 MEQ/L (21-32); CHLORIDE LEVEL 103 MEQ/L (98-107); CPK CREATINE PHOSPHOKINASE 55 U/L (39-308); CREATININE FOR GFR 1.28 MG/DL (0.70-1.30); GLUCOSE, FASTING 112 MG/DL (70-100); MB/CK RELATIVE INDEX 3.45 (< OR =4); NT-PRO BNP 158 PG/ML (<450); POTASSIUM SERUM 3.8 MEQ/L (3.5-5.1); SODIUM LEVEL 138 MEQ/L (136-145); TOTAL PROTEIN 5.8 GM/DL (6.4-8.2); TROPONIN I < 0.02 NG/ML (< 0.10)
[2019-04-14] MEDS ORDERED: IPRATROPIUM 0.5MG/ALBUTEROL 2.5MG INH SOL UD 3ML (DUONEB)(J7620) As Ordered ONE (20:05)
--- NOTE | 2019-04-14 20:06 | ECGEPIP ---
[facility] - ED Test Date: 2019-04-14 Pat Name: DALJIT MCCOY Department: Room: - Gender: Male [employer] Chemist: FABIOLA : 1935 Requested By: JASE Hernández Order Number: [id number] Reading MD: Adan Fair Measurements Intervals [place] Rate: 79 P: 64 NH: 195 QRS: 22 QRSD: 94 T: 64 QT: 363 QTc: 417 Interpretive Statements SINUS RHYTHM WITH OCCASIONAL VENTRICULAR PREMATURE COMPLEXES Electronically Signed on 04-14-2019 20:06:24 EDT by Adan Fair
[2019-04-14] MEDS ORDERED: IPRATROPIUM 0.5MG/ALBUTEROL 2.5MG INH SOL UD 3ML (DUONEB)(J7620) NEB ONE (20:15)
[2019-04-14 20:48] VITALS: BP 182/87
[2019-04-15] MEDS ORDERED: BUDESONIDE 0.25 MG/2 ML INHALATION SUSPENSION INH SCH (08:00)
== END 2019-04-14 21:12 | disposition home or self-care (01) ==
LOC: M ED 17:59 → EDBD 17:59 → M ED 21:12
DX: E11.649 Type 2 diabetes mellitus with hypoglycemia without coma (principal); J44.9 Chronic obstructive pulmonary disease, unspecified; I48.91 Unspecified atrial fibrillation; I10 Essential (primary) hypertension; N40.0 Benign prostatic hyperplasia without lower urinary tract symptoms; Z79.4 Long term (current) use of insulin; Z79.899 Other long term (current) drug therapy

== ENCOUNTER → 2019-04-27 | Outpatient (REF) | payer MEDICARE | LOC: SKLAB7 19:13 | PROVIDERS: ATTEND Internal Medicine | DX: R61 Generalized hyperhidrosis (principal) ==